=== PATIENT | female | born 1960 | race Caucasian/White ===

== ENCOUNTER 2017-07-19 10:03 | Emergency (ER) | payer OTHER ==
[~2017-07-19] VITALS: Ht 162.6 cm; Wt 87.3 kg
[~2017-07-19 10:03] MED LIST: ALBU17AE22 INH; FEXO180T PO; FLUT16SP; INSU100V10 SQ; MTF850T PO; NORG1TAB PO; ONDAN8ODT BC; PER5A PO; SIN10 PO; TAMS0.4C29 PO; TELM40TA PO; TOR10T PO
[2017-07-19 10:10] VITALS: BP 123/69; PULSE 84; RESP 15; O2SAT 96
--- NOTE | 2017-07-19 10:45 | ED.REPORT ---
HPI- Female Date of Service Jul 19, 2017 ED Provider: Dr. Perdomo The pt is a 57 y/o female with a hx of IDDM, HTN, and chronic kidney stones who presents to the ED complaining of bilateral flank pain, worse on the left side, since last week. The pt's PCP told her the blood work showed a urinary infection and prescribed antibiotics. Her pain persisted so she went to [facility], where she was told it was worsening sciatica. The pt is here today as per her urologist's recommendation. She also reports suprapubic tenderness, urinary frequency and urgency, subjective fever, chills, nausea, and intermittently alternating between diarrhea and constipation. She denies dysuria and pain from her back radiating down to her legs. She also denies any other sx at this time. Nursing Notes Stated Complaint: BACK/KIDNEY PAIN Chief Complaint: Female Abdominal Pain Nursing Notes Reviewed: Yes Allergies: Coded Allergies: pregabalin (Verified Adverse Reaction, Intermediate, HANDS AND FEET SWEALEJANDRO , 07/19/17) Scheduled Albuterol-Expunged Drug, Do Not Renew! (Albuterol-Expunged Drug, Do Not Renew!) 8.5 Gm Aero 2 PUFFS INH PRN Take 2 puffs every 4-5 hours if needed for wheezing Fexofenadine-Expunged Drug, Do Not Renew! (Fexofenadine-Expunged Drug, Do Not Renew!) 180 Mg Tablet 180 MG PO AM Fluticasone-Expunged Drug, Do Not Renew! (Flonase-Expunged Drug, Do Not Renew!) 120 Sprays Aero 1 SPRAYS NA PRN Hartly as needed for nasal stuffiness INSULIN GLARGINE-Expunged Drug, Do Not Renew! (Lantus-Expunged Drug, Do Not Renew!) 100 Unit/1 Ml Vial 80 U SQ AM INSULIN GLARGINE-Expunged Drug, Do Not Renew! (Lantus-Expunged Drug, Do Not Renew!) 100 Unit/1 Ml Vial 70 U SQ HS Ketorolac-Expunged Drug, Do Not Renew! (Ketorolac-Expunged Drug, Do Not Renew!) 10 Mg Tablet 10 MG PO PRN Take 1 tab every 6 hours if needed for pain Metformin-Expunged Drug, Do Not Renew! (Metformin-Expunged Drug, Do Not Renew!) 850 Mg Tablet 850 MG PO BID Montelukast-Expunged Drug, Do Not Renew! (Singulair-Expunged Drug, Do Not Renew! ) 10 Mg Tablet 10 MG PO HS Norgest-Eth Est-Expunged Drug, Do Not Renew! (Lo/Jebqi-40-Xwmcensl Drug, Do Not Renew!) 1 Tab Tablet 1 TAB PO DAILY Ondansetron (Ondansetron) 8 Mg Tab.rapdis 4 MG BC PRN Take 1-2 tabs every 6 hours if needed for nausea Oxycodone/APAP-Expunged Drug, Do Not Renew! (Roxicet 5/325-Expunged Drug, Do Not Renew!) 1 Tab Tablet 1 TAB PO PRN Take 1-2 tabs every 4-6 hours if needed for pain Tamsulosin-Expunged Drug, Do Not Renew! (Tamsulosin-Expunged Drug, Do Not Renew! ) 0.4 Mg Cap.sr.24h 0.4 MG PO PRN Take 1 tab every 24 hours if needed. Telmisartan-Expunged Drug, Do Not Renew! (Micardis-Expunged Drug, Do Not Renew! ) 40 Mg Tablet 40 MG PO AM General Time Seen by MD: 10:44 Chief Complaint Flank pain right, Flank pain left Hx Obtained From: Patient Arrived By: Walk-in Sudden in Onset?: Yes Onset Occurred: 1 week ago Symptom Duration: Since onset Location: : Flank left: Flank right Quality: Painful Radiation: Does not radiate Severity: Current: Moderate Severity: Maximum: Severe Recent Healthcare: Recent doctor visit Past Medical History Past Medical History IDDM HTN chronic kidney stones Past Surgical History none reported Smoking History Unknown if Ever Smoker Social History Other Social History: Good social support Ambulatory Status Independent Review of Systems Denies: pain from the back radiating to her legs. Constitutional: Reports: Chills, Fever (subjective) GI: Reports: Abdominal pain (suprapubic), Constipation, Diarrhea, Nausea Female: Reports: Flank pain (bilaterally, worse on the left), Urinary frequency, Urinary urgency, Denies: Dysuria Complete sys rev & neg: except as marked. Physical Exam Initial Vital Signs Vital Signs (First) Date Time Temp Pulse Resp B/P Pulse Ox O2 Delivery O2 Flow Rate FiO2 07/19/17 10:10 36.6 84 15 123/69 96 Room Air Initial VS: Reviewed Head / Eyes: Atraumatic, Normocephalic Neck: Supple, Non-tender, Full range of motion Respiratory: Breath sounds normal, Clear to auscultation, No respiratory distress Cardiovascular: Regular rate & rhythm, Heart sounds normal, Intact distal pulses Extremities: Vascular intact, Neuro intact, No swelling, No tenderness Skin: Warm, Dry, No cyanosis Neurologic: Alert, Oriented, Nonfocal Female Genitourinary: Exam deferred General/Constitutional: Awake, Alert, Cooperative Abdomen: Atraumatic, Soft, No guarding, No rebound Tenderness/Guarding/Rebound: Positive: Tender LLQ... (Mild) Back: Atraumatic, Full range of motion Right CVA tenderness Interpretation & Diagnostics PROCEDURE: CT KUB ([id number]) IMPRESSION: 1. Small, approximately 1 mm in diameter bilateral, nonobstructing renal stones. 2. No hydronephrosis. 3. Possible 1.4 cm left renal hemorrhagic cyst, however finding is nonspecific and renal ultrasound is recommended to exclude small renal neoplasm. 4. Possible 2.7 cm complex right renal cyst. Recommend renal ultrasound for definitive characterization the finding. 5. 0.9 cm soft tissue density exophytic left renal mass suspicious for neoplastic process including small renal cell carcinoma. Recommend renal ultrasound for further characterization. Dictated by: Blank Daniels MD, PhD on 07/19/2017 at 11:32 Approved by: Blank Daniels MD, PhD on 07/19/2017 at 11:57 Lab Results Interpretation Result Diagram: 07/19/17 1115 07/19/17 1115 Test 07/19/17 10:20 07/19/17 11:15 07/19/17 11:32 Urine Color Yellow (YELLOW) Urine Appearance Hazy (CLEAR,HAZY) Urine pH 6.0 (5.0-8.0) Urine Specific [place] 1.025 (1.003-1.035) Urine Protein 30mg/dL (NEG,TRACE) Urine Glucose (UA) Negativemg/dL (NEGATIVE) Urine Ketones Negativemg/dL (NEGATIVE) Urine Occult Blood Negative (NEGATIVE) Urine Nitrite Negative (NEGATIVE) Urine Bilirubin Negative (NEGATIVE) Urine Urobilinogen Normalmg/dL (NORMAL) Urine Leukocyte Esterase Small (NEGATIVE) Urine RBC 0-2/hpf (0-2) Urine WBC 6-10/hpf (0-5) Urine Epithelial Cells Few/hpf (NONE-MOD) Urine Crystals Oxalic acid crystals (NONE Urine Bacteria Few/hpf (NONE-FEW) Urine Hyaline Casts Occasional/lpf (NONE) Urine Granular Casts None seen (NONE SEEN) Urine Waxy Casts None seen (NONE SEEN) Urine Red Blood Cell Casts None seen (NONE SEEN) Urine White Blood Cell Casts None seen (NONE SEEN) Urine Mucus Present (None Seen) Urine Trichomonas None seen (NONE SEEN) Urine Yeast None (NONE SEEN) Urinalysis Comment None Urine Culture Reflexed Indicated Hold Urine Received (Received) White Blood Count 10.3th/mm3 (3.8-10.1) Red Blood Count 4.73mil/mm3 (3.90-5.20) Hemoglobin 12.5g/dL (12.0-15.6) Hematocrit 37.9% (35.0-46.0) Mean Corpuscular Volume 80.1fL (81-100) Mean Corpuscular Hemoglobin 26.4pg (27.0-35.0) Mean Corpuscular Hemoglobin Concent 33.0% (32.0-37.0) Red Cell Distribution Width 14.0% (12.3-15.4) Platelet Count 367bil/L (150-400) Neutrophils (%) (Auto) 70.5% (40-74) Lymphocytes (%) (Auto) 20.9% (14-46) Monocytes (%) (Auto) 5.0% (4-12) Eosinophils (%) (Auto) 2.8% (0-5) Basophils (%) (Auto) 0.4% (0-3) Sodium Level 138mEq/L (134-144) Potassium Level 3.9mEq/L (3.5-5.2) Chloride Level 102mEq/L (97-108) Carbon Dioxide Level 20mmol/L (18-29) Blood Urea Nitrogen 24mg/dL (6-24) Creatinine 0.84mg/dL (0.57-1.00) Estimat Glomerular Filtration Rate 100mL/min (>59) Glucose Level 183mg/dL (60-99) Calcium Level 10.0mg/dL (8.5-10.1) Magnesium Level 1.6mg/dL (1.6-2.6) Total Bilirubin 0.2mg/dL (0.0-1.2) Aspartate Amino Transf (AST/SGOT) 18U/L (0-50) Alanine Aminotransferase (ALT/SGPT) 34U/L (0-32) Alkaline Phosphatase 70U/L (25-150) Total Protein 6.7g/dL (6.4-8.4) Albumin 4.3g/dL (3.4-5.0) Lipase 59U/L (13-60) Hold Adhikari Top Tube Received (Received) Re-Eval/Medical Decision Med Decision/Clinical Course Likely pyelonephritis without signs of sepsis. Will start Bactrim, give pain hughes. Recommend close outpatient follow-up with primary care and urology for renal ultrasound and further evaluation. Re-Evaluation/Progress #1: Time of Eval: 12:52 Re-Evaluation/Progress Note: Recieved medical records from the pt's PCP. No urine result in the record. Re-Evaluation/Progress #2: Time of Eval: 13:05 Re-Evaluation/Progress Note: Rechecked pt. Discussed lab results, imaging results, diagnosis and plan to discharge. Pt understands and agrees with the plan. F/U instruction and RTER warning given. All questions addressed. 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 Chang agrees with the plan to discharge the pt and instructions to follow up with her PCP. Counseled Regarding: Diagnosis, Lab results, Need for follow-up, When/why to return to ED Discharge & Departure Impression: Primary Impression: Pyelonephritis Discharge Condition All VS Reviewed: Yes Patient Instructions: Kidney Stones (ED) Additional Instructions: Take Bactrim, naproxen, Vicodin as prescribed. Follow-up with a primary care doctor and urology in the next 2 days for outpatient renal ultrasound to evaluate the cysts on your kidneys as well as reevaluation of your symptoms. Return to the ER for persistent fever, lethargy, vomiting or other concerns Referrals: OTHER,PHYSICIAN Scribe Attestation Portions of this note were transcribed by Carlos Calero. I,, personally performed the history,physical exam and medical decision-making;I reviewed and confirmed the accuracy of the information in the transcribed note. Signed by Enoc Tee. 07/19/17 Jero Perdomo DO Jul 19, 2017 10:45 Carlos Calero Jul 19, 2017 10:57
[2017-07-19] MEDS ORDERED: Ketorolac 15 mg/mL Inj IVPUSH ONE (11:00)
[2017-07-19] MEDS ORDERED: 0.9% Sodium Chloride 1,000 ML IV ONE (11:00)
[2017-07-19] MEDS: HYDROmorphone 0.5 mg/0.5 mL iSecure Syringe IVPUSH PRN ×2 (11:21→12:23)
[2017-07-19] MEDS: Ondansetron 2 mg/mL 2 mL Inj IVPUSH PRN ×2 (11:21→12:23)
[2017-07-19 11:24] LABS: BASOPHILS % (AUTO) 0.4 % (0-3); EOSINOPHILS % (AUTO) 2.8 % (0-5); Mean Corpuscular Hemoglobin 26.4 pg (27.0-35.0); Mean Corpuscular Volume 80.1 fL (81-100); NEUTROPHILS % (AUTO) 70.5 % (40-74); Platelet Count 367 bil/L (150-400)
[2017-07-19 11:26] LABS: APPEARANCE,URINE HAZY (CLEAR,HAZY); COLOR,URINE YELLOW (YELLOW); OCCULT BLOOD,URINE NEGATIVE (NEGATIVE); UROBILINOGEN,URINE NORMAL (NORMAL)
[2017-07-19 11:48] LABS: Magnesium 1.6 mg/dL (1.6-2.6)
--- NOTE | 2017-07-19 11:58 | DRSVH ---
PROCEDURE: CT KUB ([id number]) INDICATIONS: Bilateral flank pain TECHNIQUE: Noncontrast 5 mm thick sections acquired from the diaphragms to the symphysis. 5 mm thick coronal an d sagittal reformats were then performed. For radiation dose reduction, the following was used: aut omated exposure control, adjustment of mA and/or kV according to patient size. COMPARISON: None. FINDINGS: Image quality: Excellent. Lung bases: Lung bases are clear. Heart size is normal. Urinary system: Both kidneys are normal in size. There is a 1.4 cm hyperdense exophytic lesion invol ving the anterior margin of the midpole of the left kidney which may represent hemorrhagic cyst. Ther e is a 0.9 cm diameter exophytic lesion with soft tissue density tracking off the lateral margin of t he left kidney (series 2, image 37. 2.7 cm in diameter hypoattenuating lesion noted in the midpole th e right kidney which may represent a complex cyst. 1 mm nonobstructing stone within the midpole of th e kidney. 1 mm nonobstructing stone in the midpole of the right kidney. No hydronephrosis or perineph mynor fat stranding. Both ureters appear non-dilated throughout their expected courses. Bladder wall thickness is normal; no calcified bladder stones. Other solid organs: Liver and spleen are normal in size. Gallbladder is within normal limits. Panc reas is normal in contours. No adrenal nodules. Peritoneum and bowel: Unenhanced bowel loops demonstrate normal wall thickness and caliber. No free fluid or air. The appendix is normal. Nodes and vessels: No retroperitoneal or mesenteric adenopathy by size criteria. Aorta and inferior vena cava are normal in caliber. Scattered atherosclerotic calcifications noted in the abdominal and pelvic vasculature. Abdominal wall: No ventral hernias. Hernia repair mesh noted. Pelvis: No free pelvic fluid. No inguinal hernias or adenopathy. Bones: No suspicious bony lesions. Convex right scoliosis of the visualized thoracic spine noted. N o vertebral body compression fractures. IMPRESSION: 1. Small, approximately 1 mm in diameter bilateral, nonobstructing renal stones. 2. No hydronephrosis. 3. Possible 1.4 cm left renal hemorrhagic cyst, however finding is nonspecific and renal ultrasound i s recommended to exclude small renal neoplasm. 4. Possible 2.7 cm complex right renal cyst. Recommend renal ultrasound for definitive characterizati on the finding. 5. 0.9 cm soft tissue density exophytic left renal mass suspicious for neoplastic process including s mall renal cell carcinoma. Recommend renal ultrasound for further characterization. Dictated by: Blank Daniels MD, PhD on 07/19/2017 at 11:32 Approved by: Blank Daniels MD, PhD on 07/19/2017 at 11:57
[2017-07-19] MEDS ORDERED: NAPR250T PO (13:18)
[2017-07-19] MEDS ORDERED: SULF1TAB35 PO (13:18)
[2017-07-19] MEDS ORDERED: HYDR-4003 PO (13:18)
[2017-07-19 13:28] VITALS: BP 115/71; PULSE 75; RESP 16; O2SAT 96
== END 2017-07-19 13:29 | disposition home or self-care (01) ==
LOC: SED 10:03
DX: N10 Acute pyelonephritis (principal); E11.9 Type 2 diabetes mellitus without complications; I10 Essential (primary) hypertension; Z87.440 Personal history of urinary (tract) infections; Z87.442 Personal history of urinary calculi; Z79.4 Long term (current) use of insulin; Z79.84 Long term (current) use of oral hypoglycemic drugs; Z88.8 Allergy status to other drugs, medicaments and biological substances
CPT/HCPCS: 36415; 74176; 80053; 81000; 83690; 83735; 85025; 87086; 96361; 96374; 96375; 96376; 99285; J1170; J1885; J2405; J7030